=== PATIENT | male | born 2000 | race Caucasian/White ===

== ENCOUNTER → 2024-06-10 | Outpatient (CLI) | payer BC ==
--- NOTE | 2024-06-10 17:26 | XR ---
EXAMINATION TYPE: XR lumbosacral spine min 4V DATE OF EXAM: 06/10/2024 4:15 PM CLINICAL INDICATION: Male, 23 years old with history of [id number] DDD,LUMBAGO; [facility] COMPARISON: None TECHNIQUE: XR lumbosacral spine min 4V - Frontal, lateral , bilateral oblique and coned in L5-S1 late ral views of the spine. FINDINGS: No evidence of any acute osseous pathology. No evidence of loss of vertebral body height i s seen. There is straightening of the lumbar vertebral bodies. No significant degeneration changes th roughout the spine there is minimal osteophyte formation and joint space narrowing. IMPRESSION: 1. No acute fracture. 2. Minimal degeneration.
== END | disposition home or self-care (01) ==
LOC: RADXRYALE 15:58
PROVIDERS: ATTEND Physician Assistant Medical
DX: M51.36 Other intervertebral disc degeneration, lumbar region (principal)
CPT/HCPCS: 72110

== ENCOUNTER → 2024-10-25 | Outpatient (CLI) | payer BC ==
--- NOTE | 2024-10-25 15:12 | MR ---
EXAMINATION TYPE: MR lumbar spine wo con DATE OF EXAM: 10/25/2024 8:41 AM COMPARISON: None. CLINICAL INDICATION: Male, 23 years old with history of M54.41 Lumbago, Low back pain into rt leg TECHNIQUE: Multiplanar, multisequence images of the lumbar spine were acquired. IV Contrast: mL (None, if empty) FINDINGS: Cord ends at the L1 level L5-S1: There is a very large disc herniation L5-S1. This has contacted and slight posterior displacem ent of the right exiting S1 nerve root. This has minimal anterior thecal sac contact. Neural foramen are patent. Disc desiccation is present. L4-L5: Large broad-based disc herniation is present with slightly greater central protrusion with mil d anterior thecal sac compression. No AP spinal canal stenosis is evident. Mild ligamentum flavum lax ity is present. Neural foramen are patent. Disc desiccation is present. L3-L4: Broad-based disc bulge has moderate central anterior thecal sac compression. Subligamentous di sc herniation is present. No AP spinal canal stenosis. Neural foramen are patent L2-L3: No focal disc herniation or significant disc bulge. No spinal canal stenosis. Neural foramen are patent. L1-L2: No focal disc herniation or significant disc bulge. No spinal canal stenosis. Neural foramen are patent. T12-L1: No focal disc herniation or significant disc bulge. No spinal canal stenosis. Neural forame n are patent. IMPRESSION: 1. Large disc herniation may have some displacement of the right S1 nerve root within the spinal wyatt l. Correlate with right radicular symptoms. 2. Large broad-based disc herniation with moderate anterior thecal sac compression. 3. Subligamentous disc herniation with moderate thecal sac compression L3-4 [facility], , 10/25/2024 3:10 PM
== END | disposition home or self-care (01) ==
LOC: RADMRIMAIN 07:56
PROVIDERS: ATTEND Family Medicine
DX: M51.16 Intervertebral disc disorders with radiculopathy, lumbar region (principal)
CPT/HCPCS: 72148